=== PATIENT | male | born 1990 | race American Indian/Alaskan Native ===

== ENCOUNTER 2016-10-30 13:56 | Emergency (ER) | payer SELFPAY ==
[2016-10-30 20:00] VITALS: BP 113/69
--- NOTE | 2016-10-30 20:05 | Emergency Department Report ---
HPI - General Chief Complaint: Rectal Pain Time Seen by Provider: 10/30/16 19:15 - HPI HPI: 26-year-old male presents today with constipation 2.5 weeks. Patient states that he has been straining and he's noticed a bulge near his anal region. Denies history of hemorrhoids. Patient states that he saw blood on the toilet paper when wiping this morning. Denies fevers, chills, nausea, vomiting, chest pain, shortness of breath, abdominal pain. Denies trying any medication for symptomatic relief. ED Past Medical Hx - Past Medical History Previous Medical History?: Yes Hx HIV: Yes - Surgical History Past Surgical History?: No - Social History Smoking Status: Never Smoker Substance Use Type: None - Medications Home Medications: Home Medications Medication Instructions Recorded Confirmed Last Taken Type Docusate Sodium [Colace] 100 mg PO BID PRN #60 capsule 10/30/16 Unknown Rx Hydrocortisone [Anucort-HC SUPPOS] 25 mg RC BID #20 supp.rect 10/30/16 Unknown Rx Lactulose [Cephulac] 15 ml PO BID #30 ml 10/30/16 Unknown Rx ED Review of Systems ROS: Stated complaint: RECTAL BLEEDING Other details as noted in HPI Constitutional: denies: chills, fever, malaise Eyes: denies: eye pain ENT: denies: ear pain, throat pain, congestion Respiratory: denies: cough, shortness of breath, wheezing Cardiovascular: denies: chest pain, palpitations Endocrine: no symptoms reported Gastrointestinal: constipation, hematochezia. denies: abdominal pain, nausea, vomiting Skin: denies: rash Neurological: denies: headache, weakness Physical Exam - Physical Exam Vital Signs: Vital Signs 10/30/16 14:29 Temperature 98.1 F Pulse Rate 101 H Respiratory 16 Rate Blood Pressure 129/81 O2 Sat by Pulse 99 Oximetry Physical Exam: GENERAL: The patient is well-developed and well-nourished. Patient is in NAD. HEAD: Normocephalic. Atraumatic. CHEST/LUNGS: Clear to auscultation throughout. HEART/CARDIOVASCULAR: Regular rate and rhythm. No murmurs, rubs or gallops. ABDOMEN: Abdomen is soft, nontender. No guarding or rebound tenderness. Negative for CVA tenderness bilaterally. RECTAL: Small hemorrhoid noted of left anal region with minimal bleeding. No strangulation noted. EXTREMITIES: Peripheral pulses intact. Capillary refill less than 2 seconds. NEURO: Alert and oriented x 3. Normal gait. ED Course Vital Signs 10/30/16 14:29 Temperature 98.1 F Pulse Rate 101 H Respiratory 16 Rate Blood Pressure 129/81 O2 Sat by Pulse 99 Oximetry ED Medical Decision Making - Lab Data Vital Signs 10/30/16 10/30/16 14:29 19:59 Temperature 98.1 F 98.0 F Pulse Rate 101 H 89 Respiratory 16 16 Rate Blood Pressure 129/81 Blood Pressure 113/69 [Right] O2 Sat by Pulse 99 99 Oximetry - Medical Decision Making 26-year-old male presents today with a small bleeding hemorrhoids and constipation. Patient is in no acute distress at this time. He will be discharged home and is encouraged to follow up with a primary care provider. He will be sent home on Colace, lactulose and anucort suppository and is encouraged to return to the emergency room for any worsening symptoms. Critical care attestation.: If time is entered above; I have spent that time in minutes in the direct care of this critically ill patient, excluding procedure time. ED Disposition Clinical Impression: Bleeding hemorrhoid Constipation Qualifiers: Constipation type: unspecified constipation type Qualified Code(s): K59.00 - Constipation, unspecified Disposition: DISCHARGED TO HOME OR SELFCARE Is pt being admited?: No Does the pt Need Aspirin: No Condition: Stable Instructions: Constipation (ED), Hemorrhoids (ED), High Fiber Diet (ED) Additional Instructions: Follow with primary care provider. Return to emergency department if symptoms worsen. Prescriptions: Docusate Sodium [Colace] 100 mg PO BID PRN #60 capsule PRN Reason: Constipation Hydrocortisone [Anucort-HC SUPPOS] 25 mg RC BID #20 supp.rect Lactulose [Cephulac] 15 ml PO BID #30 ml Referrals: PRIMARY CAREMD [Primary Care Provider] - 3-5 Days [facility] [Outside] - 3-5 Days LORNA ANDERSON MD [Staff Physician] - 3-5 Days СЕРГЕЙ CUEVAS MD [Staff Physician] - 3-5 Days SIMEON SWEENEY MD [Staff Physician] - 3-5 Days Forms: Work/School Release Form(ED) Time of Disposition: 20:06
== END 2016-10-30 20:34 | disposition home or self-care (01) ==
LOC: ED 13:56
DX: K59.00 Constipation, unspecified (principal); K64.9 Unspecified hemorrhoids; Z21 Asymptomatic human immunodeficiency virus [HIV] infection status
CPT/HCPCS: 99282

== ENCOUNTER 2018-10-01 23:32 | Emergency (ER) | payer SELFPAY ==
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
[2018-10-02] MEDS ORDERED: ULTRAM PO ONE (03:39)
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
--- NOTE | 2018-10-02 04:50 | XRay Report ---
FINAL REPORT PROCEDURE: XR FOOT 2V LT TECHNIQUE: LEFT foot radiographs, AP and lateral views. HISTORY: left foot pain with swelling COMPARISON: No prior studies are available for comparison. FINDINGS: Fracture (s) and/or Dislocation(s): There is a nondisplaced fracture of the base of the 1st distal ph alanx. Alignment: Normal. Joint space(s): Normal. Soft tissues: There is soft tissue swelling of the 1st digit. Bone mineralization: Normal. Foreign bodies: None. Calcaneal spurring: There are small calcaneal spurs. IMPRESSION: There is a nondisplaced fracture of the base of the 1st distal phalanx. There is no joint dislocation. There is soft tissue swelling of the 1st digit. There are small calcaneal spurs.
[2018-10-02] MEDS ORDERED: IBUPROFEN PO ONE (05:08)
[2018-10-02] MEDS ORDERED: FUL-GLO OP ONE (05:09)
[2018-10-02] MEDS ORDERED: TETRACAINE 0.5% OU ONE (05:09)
[2018-10-02 06:16] VITALS: BP 112/53
== END 2018-10-02 07:27 | disposition home or self-care (01) ==
LOC: ED 23:32
DX: S92.425A Nondisplaced fracture of distal phalanx of left great toe, initial encounter for closed fracture (principal); S05.01XA Injury of conjunctiva and corneal abrasion without foreign body, right eye, initial encounter; Z21 Asymptomatic human immunodeficiency virus [HIV] infection status; Z87.891 Personal history of nicotine dependence; Y04.8XXA Assault by other bodily force, initial encounter; Y93.89 Activity, other specified; Y92.89 Other specified places as the place of occurrence of the external cause; Y99.8 Other external cause status
CPT/HCPCS: 70450; 99284